=== PATIENT | male | born 1940 | race Caucasian/White ===

== ENCOUNTER 2016-12-18 13:49 | Inpatient (IN) | payer MEDICARE, OTHER ==
[~2016-12-18] VITALS: Ht 193 cm; Wt 135.9 kg
[2016-12-18 17:18] VITALS: BP 130/59; PULSE 70; TEMP 98.6
[2016-12-18] MEDS ORDERED: FLEXERIL 1010 MG/TAB PO (18:02)
[2016-12-18] MEDS ORDERED: NORVASC 5MG5 MG/TAB PO (18:04)
[2016-12-18] MEDS ORDERED: OXY IR5 MG PO (18:04)
[2016-12-18] MEDS ORDERED: ASPIRIN 81M81 MG/TA2 PO (18:05)
[2016-12-18] MEDS ORDERED: ZIAC 5/6.25MG T1 TAB PO (18:06)
[2016-12-18] MEDS ORDERED: NEURONTIN300 MG/CAP PO (18:07)
[2016-12-18] MEDS ORDERED: NITROSTAT0.4 MG/TAB SL (18:07)
[2016-12-19 04:40] VITALS: BP 143/53; PULSE 73; TEMP 98.2
[2016-12-19 17:09] VITALS: BP 137/54; PULSE 77; TEMP 98.6
[2016-12-20 03:29] VITALS: BP 124/55; PULSE 56; TEMP 98
[2016-12-20 18:13] VITALS: BP 131/49; PULSE 58; TEMP 98.3
[2016-12-21 03:22] VITALS: BP 125/52; PULSE 73; TEMP 98.9
[2016-12-21] MEDS ORDERED: TYLENOL 325MG325 MG PO (14:48)
[2016-12-21 17:25] VITALS: BP 141/57; PULSE 63; TEMP 98.1
[2016-12-22 05:10] VITALS: BP 124/45; PULSE 64; TEMP 98.2
== END 2016-12-22 11:22 | disposition home or self-care (01) | DRG 948 ==
DX: R53.81 Other malaise (principal); I10 Essential (primary) hypertension; M48.06 Spinal stenosis, lumbar region; E66.01 Morbid (severe) obesity due to excess calories; Z68.36 Body mass index [BMI] 36.0-36.9, adult
CPT/HCPCS: 99222-AI; 99239; J1650